=== PATIENT | male | born 1995 | race Caucasian/White ===

== ENCOUNTER → 2023-11-18 | Outpatient (CLI) | payer OTHER | END | disposition home or self-care (01) | LOC: RADMN 13:48 | PROVIDERS: ATTEND Student in an Organized Health Care Education/Training Program | DX: S96.811A Strain of other specified muscles and tendons at ankle and foot level, right foot, initial encounter (principal); M65.871 Other synovitis and tenosynovitis, right ankle and foot; M25.471 Effusion, right ankle; M71.571 Other bursitis, not elsewhere classified, right ankle and foot; X58.XXXA Exposure to other specified factors, initial encounter; Y93.89 Activity, other specified; Y92.89 Other specified places as the place of occurrence of the external cause; Y99.8 Other external cause status | CPT/HCPCS: 73721 ==